=== PATIENT | male | born 1960 | race Caucasian/White ===

== ENCOUNTER 2016-11-11 11:23 | Inpatient (IN) | payer SELFPAY ==
--- NOTE | ~2016-11-11 | HP ---
Unit #: [id number] #: [id number] Patient: LITZY ROUSE [id number] [address] [address] [id number] I MR#: [id number] NAME: LITZY ROUSE ROOM: 48134 Age: 56 Sex: M Admission Date: 11/11/2016 : 1960 Attending Physician: Jennifer Bejarano M.D. Primary Care Physician: Laisha Amaya A.P.R.N. HISTORY AND PHYSICAL CHIEF COMPLAINT Shortness of breath. HISTORY OF PRESENT ILLNESS The patient is a 56-year-old male with history of tobacco abuse, who presented to the emergency room complaining of shortness of breath. The patient stated that patient woke up on November 03 after with shortness of breath. The [facility] and was diagnosed with flu and received five days of Tamiflu. The patient continues to have shortness of breath to the point that he cannot take any breath. The patient was found to be hypoxic at 88% in the emergency room. The patient had a chest x-ray that showed an infiltrate bilaterally, more on the lower lobes, and is being admitted for the pneumonia. Denies any fever. Complains of nausea and denies any vomiting. Denies any chills. Stated that patient quit smoking since , and denies any sick contacts. PAST MEDICAL HISTORY History of hypertension. PAST SURGICAL HISTORY None. HOME MEDICATIONS He takes blood pressure medication, Losartan/hydrochlorothiazide. FAMILY HISTORY Reviewed and none. SOCIAL HISTORY Smoking on and off for the last many years. Denies any alcohol or any illicit drug abuse. REVIEW OF SYSTEMS A 14-point review of systems performed and only pertinent positives findings are described above, remaining are negative. PHYSICAL EXAMINATION GENERAL: On examination, the patient is lying on the bed, not in acute distress. VITAL SIGNS: Temperature 98.2, pulse 96, respiratory rate 20, blood pressure 144/81, saturating 88% at room air. HEENT: Head: Atraumatic, normocephalic. Pupils equal, round, and reactive to light and accommodation. Extraocular movements are intact. NECK: Supple. Unit #: [id number] #: [id number] Patient: RICE,LITZY LUNGS: Decreased air entry at the bases. Positive for rhonchi. HEART: Regular rate and rhythm. ABDOMEN: Soft. Positive bowel sounds. EXTREMITIES: No cyanosis. No clubbing. NEUROLOGIC: Alert, awake, oriented. No gross focal motor deficit. DIAGNOSTIC STUDIES LABORATORY: Glucose 126, BUN 18, creatinine 1, sodium 135, potassium 3.7, chloride 95, bicarbonate 26, calcium 8.3. Total protein 7.8, albumin 2.9, total bilirubin 0.8, direct bilirubin 0.3, AST 22, ALT 22, alkaline phosphatase 64. Troponin less than 0.05. WBC 13.5, hemoglobin 12.8, hematocrit 38.9, platelets 437,000, neutrophils 90.9%. IMAGING: Chest x-ray shows faint but definite infiltrates in the perihilar and lower lobe regions bilaterally. These are patchy and slightly greater on the left side than the right. They are all new from the old study. The heart size is normal. ASSESSMENT 1. Pneumonia. 2. Hypoxia. 3. Probable sepsis. PLAN Plan to admit the patient to inpatient with telemetry. Continue with IV antibiotics with Rocephin and Zithromax. Check the (1) . If it is elevated, then initiate the sepsis protocol and continue with DuoNeb and Zofran p.r.n. and repeat the labs again in the morning. Further recommendations will follow. Dictated by Janelle Palma TD: 11/11/2016 16:41 JOB #: [id number] HISTORY AND PHYSICAL Page 1 of 1 X X HISTORY AND PHYSICAL
--- NOTE | ~2016-11-11 | CR72 ---
[facility] A Service of [facility] & [facility] RADIOLOGY TEXT RESULTS PATIENT: LITZY ROUSE LOCATION: [facility] : 56 UNIT #: [id number] AGE: [address]: Chaz Rollins MD SEX: M ORDER DR: [id number] [facility] [address] [place], [place] [address] [id number] MR#: [id number] Acc #: [id number] NAME: LITZY ROUSE : 1960 SEX: M STUDY DATE/TIME: 11/11/2016 13:37 UNIT: [facility] ROOM: STUDY DESCRIPTION: CR Chest Single View Portable Attending Physician: Chaz Rollins M.D. Ordering Physician: Chaz Rollins M.D. Primary Care Physician: Faith [email or web address] MEDICAL IMAGING REPORT This report is preliminary unless electronic signature is present EXAM Portable chest, 11/11 HISTORY Shortness of air and cough today. COMPARISON STUDIES 01/10/2016 FINDINGS This portable view of the chest shows faint but definite infiltrates in the perihilar and lower lobe regions bilaterally. These are patchy and slightly greater on the left side than on the right. They are all new from the old study. The heart size is normal. Dictated by... Horace Corona M.D. THIS IS AN ELECTRONICALLY VERIFIED REPORT Horace Corona M.D. at 11/11/2016 3:39 PM JONNATHAN/elian TD: 11/11/2016 14:01 JOB #: [id number] MEDICAL IMAGING REPORT Page 1 of 1 COPY
--- NOTE | ~2016-11-11 | EKG ---
PATIENT: LITZY ROUSE UNIT #: [id number] Ventricular Rate: 101 BPM Atrial Rate: 101 BPM P-R Interval: 128 ms QRS Duration: 84 ms Q-T Interval: 336 ms QTC Calculation(Bezet): 435 ms P [place]: 83 degrees Calculated R [place]: 83 degrees Calculated T [place]: 64 degrees Diagnosis Line: Sinus tachycardia with occasional Premature Diagnosis Line: ventricular complexes Diagnosis Line: Otherwise normal ECG Diagnosis Line: No previous ECGs available Diagnosis Line: Confirmed by NEHA GARCIA MD ([id number]) on 11/12/2016 Diagnosis Line: 10:36:42 AM INTERPRETING MD: RADHA DARLING
--- NOTE | ~2016-11-11 | DS ---
Unit #: [id number] #: [id number] Patient: LITZY PHOENIX [id number] [address] [address] [id number] I MR#: [id number] NAME: LITZY PHOENIX ROOM: 301 Age: 56 Sex: M Admission Date: 11/11/2016 : 1960 Discharge Date: 11/14/2016 Attending Physician: Gunjan Michel M.D. Primary Care Physician: Laisha Amaya A.P.R.N. DISCHARGE SUMMARY PRINCIPAL DIAGNOSIS 1. Acute on chronic hypoxic respiratory failure, now maintained on two liters of oxygen per nasal cannula continuously. 2. Sepsis secondary to bilateral lobed community acquired pneumonia. Bilateral lower lobe community acquired pneumonia. 3. Acute exacerbation of chronic obstructive pulmonary disease. 4. Mild insulin resistance with hemoglobin A1C 5.7. 5. Nicotine patch induced delirium, now resolved. 6. Mild protein malnutrition. 7. Hypertension. 8. Tobaccoism (1) COMMUNICATION CENTER OPERATOR None. PROCEDURE Chest x-ray on November 11, 2016 with infiltrates in the perihilar and lower lobe bilaterally. CLINICAL HISTORY AND HOSPITAL COURSE Mr. Phoenix is a very nice 56-year-old male who presents to the emergency department with increasing cough and shortness of breath. Please refer to H and P for further details. In the emergency department patient was hypoxic with resting O2 sat of 88% in the emergency department. Chest x-ray reveal bilateral lower lobe infiltrate. Patient's white blood cell count is mildly elevated at 13.5, he was subsequently admitted. Patient is placed one empiric antibiotics in regards to his pneumonia in addition to oxygen for his hypoxia. However, he following day he was found to have significant wheezing and subsequently the addition of IV steroids. Patient's wheezing has significantly improved, his leukocytosis has resolved and he has remained afebrile. However, he continues to remain hypoxic. Resting room air oxygen saturations are 87%. I suspect the patient has been chronically hypoxic at home for quite some time and we will arrange home oxygen at two liters per nasal cannula continuously and hopefully in the future with improved medical treatment, cessation of tobacco this oxygen can be discontinued. Unfortunately at this time the patient does not have insurance and is paying for the oxygen out of pocket. He would benefit from the addition of something like Symbicort or Advair but I think at this time would be cost prohibitive. We will continue his albuterol inhaler which he has at home in addition to the oxygen and a tapering dose of prednisone and he will be discharge home later today. Unit #: [id number] #: [id number] Patient: LITZY PHOENXI DISCHARGE CONDITION Stable. DISCHARGE STATUS Discharged to home. DISCHARGE MEDICATIONS Prednisone 10 mg tablets, 4 tablets for 3 days, 3 tablets for 3 days, then 2 tablets for 3 days, then 1 tablet for 3 days and discontinue. Oxygen at 2 liters per nasal cannula continuously. Albuterol inhaler 1-2 puffs every 4 hours p.r.n. for shortness of breath, Losartan/HCTZ 50/12.5 mg one tablet daily. Azithromycin 250 mg daily p.o. daily for 4 days. Again, as an outpatient patient would benefit from the addition of Symbicort or Advair if not cost prohibitive. DISCHARGE INSTRUCTIONS The patient has been nicotine free for two weeks and I have encouraged him to continue to avoid nicotine use in the future. He should monitor his carbohydrate intake and increase his activity as tolerated. FOLLOW UP Patient will follow up with Dr. Prater in two weeks. Time spent on discharge: 34 minutes. Dictated by... Gunjan Michel M.D. HIMA/bogdan TD: 11/16/2016 06:43 JOB #: [id number] DISCHARGE SUMMARY Page 1 of 1 X Gunjan Michel MD X DISCHARGE SUMMARY
[2016-11-11 13:33] LABS: BASOPHIL# 0.2 X10e3 (0-0.3); BASOPHIL% 1.4 % (0-2.5); HEMATOCRIT 38.9 % (38.0-50.0); HEMOGLOBIN 12.8 gm/dL (13.0-16.0); LYMPHOCYTE# 0.5 X10e3 (1.0-3.5); MEAN CELL VOLUME 89.5 FL (83-96); MEAN CORPUSCULAR HEMOGLOBIN 29.5 PG (28-34); MEAN PLATELET VOLUME 8.7 FL (6.5-11.5); MONOCYTE# 0.5 X10e3 (0-1.0); MONOCYTE% 3.7 % (3.0-12.0); NEUTROPHIL# 12.2 X10e3 (1.5-7.1); NEUTROPHIL% 90.9 % (40-75); PLATELET COUNT 437 X10e3 (140-420); RED BLOOD COUNT 4.35 X10e (3.90-5.60); RED CELL DISTRIBUTION WIDTH 13.3 % (11.0-15.5); WHITE BLOOD COUNT 13.5 X10e3 (4.0-10.5)
[2016-11-11 13:47] LABS: DIFF IND NO
[2016-11-11 13:57] LABS: ALBUMIN SERUM 2.9 g/dL (3.5-5.0); BILIRUBIN, DIRECT 0.3 mg/dL (0.0-0.2); BILIRUBIN,INDIRECT 0.5 mg/dL (0.0-0.9); BILIRUBIN,TOTAL 0.8 mg/dL (0.2-2.0); CALCIUM SERUM 8.3 mg/dL (8.4-10.2); GLOM FILT RATE Estimated 82.6 mL/min (>60); POTASSIUM 3.7 mmol/L (3.5-5.1); PROTEIN TOTAL SERUM 7.8 g/dL (6.0-8.3)
[2016-11-11] MEDS ORDERED: PATIENT'S PHARMACY (14:34)
[2016-11-11 14:37] LABS: POC - CKMB 1.4 ng/mL (0.0-7.9); POC - TROPONIN <0.05 ng/mL (<=0.05)
[2016-11-11] MEDS ORDERED: LOSARTAN-HCTZ1 EACH PO (14:38)
[2016-11-12 04:54] LABS: BASOPHIL% 0.1 % (0-2.5); HEMATOCRIT 36.7 % (38.0-50.0); HEMOGLOBIN 12.2 gm/dL (13.0-16.0); LYMPHOCYTE# 0.6 X10e3 (1.0-3.5); LYMPHOCYTE% 4.6 % (17.0-45.0); MEAN CELL VOLUME 89.9 FL (83-96); MEAN CORPUSCULAR HEMOGLOBIN 29.8 PG (28-34); MEAN CORPUSCULAR HGB CONC 33.2 g/dL (30-36); MEAN PLATELET VOLUME 9.2 FL (6.5-11.5); MONOCYTE# 0.4 X10e3 (0-1.0); MONOCYTE% 2.9 % (3.0-12.0); NEUTROPHIL# 11.7 X10e3 (1.5-7.1); NEUTROPHIL% 92.4 % (40-75); PLATELET COUNT 415 X10e3 (140-420); RED BLOOD COUNT 4.08 X10e (3.90-5.60); RED CELL DISTRIBUTION WIDTH 13.5 % (11.0-15.5); WHITE BLOOD COUNT 12.6 X10e3 (4.0-10.5)
[2016-11-12 04:55] LABS: DIFF IND NO
[2016-11-12 06:48] LABS: BUN/CREATININE RATIO 23.33; CALCIUM SERUM 8.1 mg/dL (8.4-10.2); CREATININE SERUM 0.9 mg/dL (0.6-1.4); GLOM FILT RATE Estimated 93.8 mL/min (>60)
[2016-11-14] MEDS ORDERED: AZITHROMYCIN250 MG PO (14:44)
[2016-11-14] MEDS ORDERED: PREDNISONE10 MG PO (14:47)
[2016-11-14] MEDS ORDERED: OXYGEN (15:18)
[2016-11-14] MEDS ORDERED: ALBUTEROL20 ml (15:21)
== END 2016-11-14 17:26 | disposition home or self-care (01) | DRG 871 ==
LOC: CED 11:23 → CEDOF 15:50 → C3A PCU 15:50 → CED 16:08 → CEDOF 16:08 → C3A PCU 19:58
PROVIDERS: Emergency Medicine; Internal Medicine
DX: A41.9 Sepsis, unspecified organism (principal); J18.9 Pneumonia, unspecified organism; J96.01 Acute respiratory failure with hypoxia; J44.0 Chronic obstructive pulmonary disease with (acute) lower respiratory infection; J44.1 Chronic obstructive pulmonary disease with (acute) exacerbation; E44.0 Moderate protein-calorie malnutrition; F17.210 Nicotine dependence, cigarettes, uncomplicated; I10 Essential (primary) hypertension; R41.0 Disorientation, unspecified; F41.9 Anxiety disorder, unspecified; R73.9 Hyperglycemia, unspecified; Z68.21 Body mass index [BMI] 21.0-21.9, adult
CPT/HCPCS: 36415; 71010; 80048; 80076; 82553; 83036; 83605; 84484; 85025; 87070; 87205; 93005; 94640; 94760; 99285; J0456; J0696; J1650; J2405; J2920; J2930